=== PATIENT | female | born 1965 | race Hispanic/Latino ===

== ENCOUNTER → 2018-04-29 | Outpatient (CLI) | payer OTHER | LOC: M RAD 17:51 | DX: R10.9 Unspecified abdominal pain (principal); N20.0 Calculus of kidney; K57.30 Diverticulosis of large intestine without perforation or abscess without bleeding | CPT/HCPCS: 74176 ==

== ENCOUNTER → 2018-05-13 | Outpatient (REF) | payer OTHER ==
[2018-05-13 19:45] LABS: APPEARANCE, URINE HAZY (CLEAR); BACTERIA, URINE AUTO NEGATIVE (NEGATIVE); BILIRUBIN, URINE AUTO NEGATIVE (NEGATIVE); BLOOD, URINE BLOOD NEGATIVE (NEGATIVE); COLOR, URINE YELLOW (YELLOW); GLUCOSE, URINE (UA) AUTO NEGATIVE (NEGATIVE); KETONE, URINE AUTO NEGATIVE (NEGATIVE); LEUKOCYTE ESTERASE, URINE AUTO NEGATIVE (NEGATIVE); NITRITE, URINE AUTO NEGATIVE (NEGATIVE); PROTEIN, URINE AUTO NEGATIVE (NEGATIVE); RBC, URINE AUTO 0 /HPF (0-3); SPECIFIC GRAVITY URINE AUTO 1.013 (1.002-1.035); SQUAMOUS EPITHELIAL CELL UR AU 5 /HPF (0-6); UROBILINOGEN, URINE AUTO 0.2 mg/dL (0.0-2.0); WBC, URINE AUTO 1 /HPF (0-3)
== END ==
LOC: M SMT 17:07
DX: N39.3 Stress incontinence (female) (male) (principal)

== ENCOUNTER → 2021-10-07 | Outpatient (CLI) | payer OTHER ==
[~2021-10-07] MED LIST: ACE65ERTAB PO; AMIT10TA7 PO; ASPI81TA26 PO; CALC600T57 PO; CARV6.25 PO; CIPR500T3 PO; CLAR10CA3 PO; DITR5TAB PO; HYDR12.55 PO; JANU50TA4 PO; LIDO5DIS41 TD; LISI2.5T9 PO; MAGN200T PO; MAXA5TAB10 PO; MIRA3350 PO; NEXI40CA PO; PERC5TAB12 PO; PROAAER10 IN; RAMI1CAP22 PO; SIMV40TA20 PO; VITA10006 PO; ZOLO100T PO; potassium citrate PD; treximet PO
--- NOTE | 2021-10-10 18:14 | SLEEPCENT ---
DATE: 10/10/2021 CPAP RE-TITRATION ORDERED BY: LIZBETH Kay Nocturnal polysomnography was performed for the titration of pressure therapy in this patient with obstructive sleep apnea syndrome. For testing a ResMed F301 full face mask of medium size was used, 4 cm of water pressure were applied to the circuit, and the lights were extinguished. Seven hours and 58 minutes of data were reviewed. There were 306 minutes of sleep identified. Sleep latency was prolonged at 82 minutes. REM latency was normal at 114 minutes. Sleep architecture was fairly good with three REM cycles. Overall sleep efficiency was 64.8%. The electrocardiogram showed a sinus rhythm with an average heart rate of 65 beats per minute. EEG showed normal waveforms for wake and sleep. Persistent of respiratory events prompted increases in CPAP pressure. Best sleep was seen on a CPAP pressure of +7. However, when the patient assumed the supine position some respiratory events persisted. There was no significant limb activity and remaining measures of sleep physiology were normal. IMPRESSION: Obstructive sleep apnea syndrome. RECOMMENDATION: Nightly use of CPAP at a pressure of 7 cm would appear appropriate based on these results. Close clinical followup will be necessary and if symptoms persist, a re-titration to a higher pressure may be necessary. cc: Dr. Guzmán
== END ==
LOC: M SLEEP 20:00
PROVIDERS: ATTEND Nurse Practitioner Family
DX: G47.33 Obstructive sleep apnea (adult) (pediatric) (principal)